=== PATIENT | female | born 1960 | race Caucasian/White ===

== ENCOUNTER 2021-08-12 01:42 | Observation (INO) | payer SELFPAY ==
[2021-08-12] MEDS ORDERED: Ondansetron 4 MG/2 ML SDV IVPUSH ONE ×2 (01:44→02:50)
[2021-08-12] MEDS ORDERED: Sodium Chloride 0.9% 10 ML Syringe FLUSH PRN ×3 (01:44→04:38)
[2021-08-12] MEDS ORDERED: Sodium Chloride 0.9% 1,000 ML IV SCH (01:45)
[2021-08-12] MEDS ORDERED: Heparin Sodium 5,000 Units/ML Vial IVPUSH ONE ×2 (01:52→02:48)
--- NOTE | 2021-08-12 01:52 | EDM.PDOC ---
ED HPI GENERAL MEDICAL PROBLEM - General Chief Complaint: Gastrointestinal Problem Stated Complaint: OPEN WOUNDS INFECTIONS Time Seen by Provider: 08/12/21 01:43 Source of Information: Reports: Patient, Family History Limitations: Reports: No Limitations - History of Present Illness INITIAL COMMENTS - FREE TEXT/NARRATIVE: Tiffanie is a 61-year-old female presenting to the ED via private vehicle for evaluation of vomiting, dehydration, and not feeling well for the last 5 or 6 days. The patient states that she just has not been doing well at home. She has not seen a doctor in many many years and upon taking her into room 9 and getting her disrobe she has a fungating right breast cancer that is evident as it is eroded through the skin. She has hypoxic with an SPO2 of 78% on room air, tachypneic, pale and cachectic. She is very cold to the touch. Upon connecting her to the dba developer she appears to have ST elevation so a twelve-lead EKG was obtained showing ST elevation in leads II, III, aVF, and V3, V4, V5 and V6. She also has concomitant IA interval depression. Initially a STEMI was called and I discussed the case with Dr. Kumar, strike warfare/missile systems officer at [facility] who thinks that this is more likely not a STEMI but rather pericarditis based on the IA depression. The patient does not have any chest pain but she is visibly dyspneic. She was placed on 2 L nasal cannula with an SPO2 rising to 96%. She request to be DNR and DNI upon asking of her CODE STATUS. When asked why she never addressed the breast cancer her response was that she did not want to. - Related Data Allergies Allergy/AdvReac Type Severity Reaction Status Date / Time No Known Allergies Allergy Verified 08/12/21 01:49 Home Meds: Home Meds NK [No Known Home Meds] 08/12/21 [History] ED ROS GENERAL - Review of Systems Review Of Systems: See Below Constitutional: Reports: Malaise, Weakness, Diaphoresis HEENT: Reports: No Symptoms Respiratory: Reports: Shortness of Breath Cardiovascular: Reports: Blood Pressure Problem (Low blood pressure) Endocrine: Reports: No Symptoms GI/Abdominal: Reports: Abdominal Pain, Decreased Appetite, Nausea, Vomiting : Reports: No Symptoms Musculoskeletal: Reports: No Symptoms Skin: Reports: No Symptoms Neurological: Reports: No Symptoms Psychiatric: Reports: No Symptoms Hematologic/Lymphatic: Reports: No Symptoms Immunologic: Reports: No Symptoms ED EXAM, GENERAL - Physical Exam Exam: See Below Exam Limited By: No Limitations General Appearance: Alert, Anxious, Moderate Distress, Cachetic Eye Exam: Bilateral Eye: EOMI, PERRL Throat/Mouth: Other (Dry mucous membranes) Head: Atraumatic Neck: Normal Inspection Respiratory/Chest: No Accessory Muscle Use, Decreased Breath Sounds (Highly reduced breath sounds in the bases), Rhonchi (A basilar), Other (Tachypnea, a fungating breast mass eroding through the skin involving the right breast.) Cardiovascular: Normal Peripheral Pulses, Regular Rate, Rhythm, No Murmur, Tachycardia Peripheral Pulses: 2+: Radial (L), Radial (R) GI/Abdominal: Soft, Non-Tender, No Distention, Abnormal Bowel Sounds (Diminished bowel sounds) Back Exam: Normal Inspection Extremities: Normal Range of Motion, No Pedal Edema Neurological: Alert, Oriented, Normal Cognition, No Motor/Sensory Deficits Psychiatric: Anxious, Depressed Mood Skin Exam: No Rash, Pallor (Sallow appearing), Other (Poor skin turgor) ED ULTRASOUND - Cardiac Indication: possible pericardial effusion, hypotension Findings: normal wall motion Impression: cardiac activity, pericardial effusion, other (I performed a bedside echocardiogram to assess for heart function, pericarditis, and pericardial effusion. The patient has a hyperdynamic hypertrophic left ventricle without regional wall motion abnormalities. She has a normal aortic and mitral valve. She has a large pericardial effusion which is) Images archived: Yes #1 Interpretation EKG Date: 08/12/21 Time: 01:45 Rhythm: NSR Rate (Beats/Min): 103 [place]: Normal P-Wave: Present QRS: Normal ST-T: Elevated (ST elevation in leads II, III, aVF, and V2 through V6. I reviewed this EKG with Dr. Kumar at [facility] who feels it is more consistent with pericarditis than STEMI.) QT: Normal Comparison: NA - No Prior EKG Course - Vital Signs Last Recorded V/S: Last Vital Signs Temp 36.1 C 08/12/21 01:45 Pulse 104 H 08/12/21 01:45 Resp 20 08/12/21 01:45 BP 90/66 08/12/21 01:45 Pulse Ox 96 08/12/21 01:45 - Orders/Labs/Meds Orders: Active Orders 24 hr Category Date Time Status Chest 1V Frontal [CR] Stat Exams 08/12/21 01:44 Taken CULTURE BLOOD [BC] Urgent Lab 08/12/21 01:55 Received CULTURE BLOOD [BC] Urgent Lab 08/12/21 02:00 Received DD [D-DIMER QUANTITATIVE] [COAG] Stat Lab 08/12/21 02:00 Received LACTIC ACID [CHEM] Routine Lab 08/12/21 06:00 Ordered PROCALCITONIN [CHEM] Stat Lab 08/12/21 02:00 Received UA W/MICROSCOPIC [URIN] Stat Lab 08/12/21 01:44 Ordered HYDROmorphone [Dilaudid] Med 08/12/21 03:01 Active 0.5 mg IVPUSH Q1H PRN Heparin Sodium/D5W [Heparin 25,000 Units in D5W 500 ML] Med 08/12/21 02:00 Active 25,000 units in 500 ml IV TITRATE Heparin Sodium/D5W [Heparin 25,000 Units in D5W 500 ML] Med 08/12/21 03:00 Active 25,000 units in 500 ml IV TITRATE Sodium Chloride 0.9% [Normal Saline] 1,000 ml Med 08/12/21 01:45 Active IV ASDIRECTED Sodium Chloride 0.9% [Saline Flush] Med 08/12/21 01:44 Active 10 ml FLUSH ASDIRECTED PRN Sodium Chloride 0.9% [Saline Flush] Med 08/12/21 02:43 Active 10 ml FLUSH ASDIRECTED PRN Blood Culture x2 Reflex Set [OM.PC] Urgent Oth 08/12/21 01:44 Ordered Isolation [COMM] Stat Oth 08/12/21 01:45 Ordered Saline Lock Insert [OM.PC] Routine Oth 08/12/21 01:44 Ordered Saline Lock Insert [OM.PC] Stat Oth 08/12/21 02:43 Ordered Severe Sepsis Onset Time [OM.PC] Stat Oth 08/12/21 02:43 Ordered EKG 12 Lead [EK] Routine Ther 08/12/21 01:46 Ordered Medication Orders Hydromorphone HCl (Hydromorphone 0.5 Mg/0.5 Ml Syringe) 0.5 mg IVPUSH Q1H PRN PRN Reason: Pain (moderate 4-6) Last Admin: 08/12/21 03:09 Dose: 0.5 mg Documented by: SHEBA Sodium Chloride (Normal Saline) 1,000 mls @ 999 mls/hr IV ASDIRECTED SHEREEN Last Admin: 08/12/21 01:53 Dose: 999 mls/hr Documented by: RACHEL Heparin Sodium/Dextrose (Heparin 25,000 Units In D5w 500 Ml) 25,000 units in 5 00 mls @ 10.886 mls/hr IV TITRATE SHEREEN; Protocol Heparin Sodium/Dextrose (Heparin 25,000 Units In D5w 500 Ml) 25,000 units in 500 mls @ 10.886 mls/hr IV TITRATE SHEREEN; Protocol Sodium Chloride (Sodium Chloride 0.9% 10 Ml Syringe) 10 ml FLUSH ASDIRECTED PRN PRN Reason: Keep Vein Open Sodium Chloride (Sodium Chloride 0.9% 10 Ml Syringe) 10 ml FLUSH ASDIRECTED PRN PRN Reason: Keep Vein Open Labs: Laboratory Tests 08/12/21 08/12/21 08/12/21 Range/Units 01:55 01:55 01:55 WBC 11.7 H (4.5-11.0) K/uL RBC 5.69 H (3.30-5.50) M/uL Hgb 16.2 H (12.0-15.0) g/dL Hct 47.6 (36.0-48.0) % MCV 84 (80-98) fL MCH 29 (27-31) pg MCHC 34 (32-36) % Plt Count 145 L (150-400) K/uL Neut % (Auto) 80.7 H (36-66) % Lymph % (Auto) 10.8 L (24-44) % [place] % (Auto) 8.2 H (2-6) % Eos % (Auto) 0.1 L (2-4) % Baso % (Auto) 0.2 (0-1) % PT (9.2-10.6) sec INR APTT (21.4-31.8) sec Sodium 127 L (140-148) mmol/L Potassium 5.5 H (3.6-5.2) mmol/L Chloride 89 L (100-108) mmol/L Carbon Dioxide 20 L (21-32) mmol/L Anion Gap 23.5 H (5.0-14.0) mmol/L BUN 64 H (7-18) mg/dL Creatinine 3.1 H (0.6-1.0) mg/dL Est Cr Clr Drug Dosing 13.65 mL/min Estimated GFR (MDRD) 15 L (>60) Glucose 197 H (74-106) mg/dL Lactic Acid 5.8 H (0.4-2.0) mmol/L Calcium 7.9 L (8.5-10.1) mg/dL Total Bilirubin 0.4 (0.2-1.0) mg/dL AST 61 H (15-37) U/L ALT 79 H (12-78) U/L Alkaline Phosphatase 148 H (46-116) U/L Lactate Dehydrogenase 489 H (82-234) U/L Troponin I High Sens (<=60.3) pg/mL C-Reactive Protein 5.32 H (0.0-0.3) mg/dL Total Protein 7.1 (6.4-8.2) g/dL Albumin 2.8 L (3.4-5.0) g/dL Globulin 4.3 H (2.3-3.5) g/dL Albumin/Globulin Ratio 0.7 L (1.2-2.2) Influenza Type A RNA (NEGATIVE) RSV RNA (INAAT) (NEGATIVE) Influenza Type B RNA (NEGATIVE) SARS-CoV-2 RNA (SEDA) (NEGATIVE) 08/12/21 08/12/21 08/12/21 Range/Units 01:55 02:00 02:10 WBC (4.5-11.0) K/uL RBC (3.30-5.50) M/uL Hgb (12.0-15.0) g/dL Hct (36.0-48.0) % MCV (80-98) fL MCH (27-31) pg MCHC (32-36) % Plt Count (150-400) K/uL Neut % (Auto) (36-66) % Lymph % (Auto) (24-44) % [place] % (Auto) (2-6) % Eos % (Auto) (2-4) % Baso % (Auto) (0-1) % PT 10.2 (9.2-10.6) sec INR 1.0 APTT 28.3 (21.4-31.8) sec Sodium (140-148) mmol/L Potassium (3.6-5.2) mmol/L Chloride (100-108) mmol/L Carbon Dioxide (21-32) mmol/L Anion Gap (5.0-14.0) mmol/L BUN (7-18) mg/dL Creatinine (0.6-1.0) mg/dL Est Cr Clr Drug Dosing mL/min Estimated GFR (MDRD) (>60) Glucose (74-106) mg/dL Lactic Acid (0.4-2.0) mmol/L Calcium (8.5-10.1) mg/dL Total Bilirubin (0.2-1.0) mg/dL AST (15-37) U/L ALT (12-78) U/L Alkaline Phosphatase (46-116) U/L Lactate Dehydrogenase (82-234) U/L Troponin I High Sens 1243.8 H* (<=60.3) pg/mL C-Reactive Protein (0.0-0.3) mg/dL Total Protein (6.4-8.2) g/dL Albumin (3.4-5.0) g/dL Globulin (2.3-3.5) g/dL Albumin/Globulin Ratio (1.2-2.2) Influenza Type A RNA Negative (NEGATIVE) RSV RNA (INAAT) Negative (NEGATIVE) Influenza Type B RNA Negative (NEGATIVE) SARS-CoV-2 RNA (SEDA) Positive H (NEGATIVE) Meds: Medications Generic Name Dose Route Start Last Admin Trade Name Freq PRN Reason Stop Dose Admin Hydromorphone HCl 0.5 mg 08/12/21 03:01 08/12/21 03:09 Hydromorphone 0.5 Mg/0.5 Ml Syringe IVPUSH 0.5 mg Q1H PRN Administration Pain (moderate 4-6) Sodium Chloride 1,000 mls @ 999 mls/hr 08/12/21 01:45 08/12/21 01:53 Normal Saline IV 999 mls/hr ASDIRECTED SHEREEN Administration Heparin Sodium/Dextrose 25,000 units in 500 mls @ 10.886 mls/hr 08/12/21 02:00 Heparin 25,000 Units In D5w 500 Ml IV TITRATE SHEREEN Protocol 12 UNITS/KG/HR Heparin Sodium/Dextrose 25,000 units in 500 mls @ 10.886 mls/hr 08/12/21 03:00 Heparin 25,000 Units In D5w 500 Ml IV TITRATE SHEREEN Protocol 12 UNITS/KG/HR Sodium Chloride 10 ml 08/12/21 01:44 Sodium Chloride 0.9% 10 Ml Syringe FLUSH ASDIRECTED PRN Keep Vein Open Sodium Chloride 10 ml 08/12/21 02:43 Sodium Chloride 0.9% 10 Ml Syringe FLUSH ASDIRECTED PRN Keep Vein Open Discontinued Medications Generic Name Dose Route Start Last Admin Trade Name Freq PRN Reason Stop Dose Admin Aspirin 324 mg 08/12/21 01:56 08/12/21 02:03 Aspirin 81 Mg Tab.Chew PO 08/12/21 01:57 324 mg ONETIME ONE Administration Heparin Sodium (Porcine) 2,700 units 08/12/21 01:52 08/12/21 02:13 Heparin Sodium 5,000 Units/Ml Vial IVPUSH 08/12/21 01:53 Not Given .BOLUS ONE Heparin Sodium (Porcine) 2,700 units 08/12/21 02:48 Heparin Sodium 5,000 Units/Ml Vial IVPUSH 08/12/21 02:49 .BOLUS ONE Ondansetron HCl 4 mg 08/12/21 01:44 08/12/21 01:53 Ondansetron 4 Mg/2 Ml Sdv IVPUSH 08/12/21 01:45 4 mg ONETIME ONE Administration Ondansetron HCl 4 mg 08/12/21 02:50 Ondansetron 4 Mg/2 Ml Sdv IVPUSH 08/12/21 02:51 ONETIME ONE - Re-Assessments/Exams Free Text/Narrative Re-Assessment/Exam: 08/12/21 01:45 an EKG was done showing ST elevation in leads II, III, aVF, and V3 through V6 consistent with possible STEMI. I discussed the case with Dr. José valdez strike warfare/missile systems officer on-call for STEMI's at [facility] who thinks that this is more likely pericarditis given the concomitant IA depressions. He also recommended looking at the D-dimer to make sure that she is not having a PE. He does not believe that this is a STEMI at this time so does not think that she needs to go to the Credit Control Officer. I reviewed the patient's labs showing a leukocyte count of 11.7, hemoglobin of 16.2 and a platelet count of 145,000. Her comprehensive metabolic panel shows a sodium of 127, potassium 5.5, chloride of 89, bicarbonate of 20, BUN of 64 with a creatinine of 3.1 and a glucose of 197. Her calcium is 7.9 with an albumin of 2.8, her AST is 61 with an ALT of 79 and alkaline phosphatase of 149. Her venous lactate is 5.8. Her highly sensitive troponin is 1243.8 and her C- reactive protein is 5.32. LDH is elevated at 489. 08/12/21 03:10 I had a discussion with the patient and her family concerning her situation currently. The patient has evidence for cardiac damage with a troponin at 1243.7, kidney damage with a creatinine of 3.1, liver damage with elevation of her AST, ALT and alkaline phos, a venous lactic acid of 5.8 and she has soft blood pressures with a systolic pressure of 87/60. She is tachycardic with a heart rate of [address] elevation in leads II, III, aVF, and V3 through V6 with concomitant IA depression consistent with pericarditis. I did do a bedside echocardiogram showing a large pericardial effusion and hyperdynam ic small hypertrophic LV without regional wall motion abnormalities. In addition to all this, the patient is also Covid positive. We discussed management including how aggressive and the patient elects for comfort measures at this time. We initiated treatment with Dilaudid 0.5 mg every hour as needed for pain control. 08/12/21 03:35 I will discussed the case with Dr. Jenkins arrange for admission of the patient for comfort care measures. Departure - Departure Time of Disposition: 03:38 Disposition: Admitted As Inpatient 66 Clinical Impression: Metastatic breast cancer, COVID-19, Pneumonia due to COVID-19 virus, Elevated liver enzymes, Pericardial effusion, Hyperkalemia, Hyponatremia, Hyperglycemia, Elevated troponin, Hypoxia Acute kidney failure Qualifiers: Acute renal failure type: unspecified Qualified Code(s): N17.9 - Acute kidney failure, unspecified Pericarditis Qualifiers: Pericarditis type: associated with other disease Chronicity: unspecified Qualified Code(s): I31.9 - Disease of pericardium, unspecified Myocarditis Qualifiers: Myocarditis type: unspecified Chronicity: unspecified Qualified Code(s): I51.4 - Myocarditis, unspecified Nausea and vomiting Qualifiers: Vomiting type: unspecified Qualified Code(s): R11.2 - Nausea with vomiting, unspecified Hypotension Qualifiers: Hypotension type: unspecified hypotension type Qualified Code(s): I95.9 - Hypotension, unspecified - Discharge Information Referrals: PCP,None [Primary Care Provider] - Forms: ED Department Discharge Sepsis Event Note (ED) - Focused Exam Vital Signs: Vital Signs Temp Pulse Resp BP Pulse Ox 08/12/21 01:45 36.1 C 104 H 20 90/66 96 - Problem List & Annotations (1) Acute kidney failure SNOMED Code(s): 77086793 Code(s): N17.9 - ACUTE KIDNEY FAILURE, UNSPECIFIED Status: Acute Current Visit: Yes Qualifiers: Acute renal failure type: unspecified Qualified Code(s): N17.9 - Acute kidney failure, unspecified (2) COVID-19 SNOMED Code(s): 675574537 Code(s): U07.1 - COVID-19 Status: Acute Current Visit: Yes (3) Elevated liver enzymes SNOMED Code(s): 641245535 Code(s): R74.8 - ABNORMAL LEVELS OF OTHER SERUM ENZYMES Status: Acute Current Visit: Yes (4) Elevated troponin SNOMED Code(s): 783022836, 983870509, 268075743 Code(s): R77.8 - OTHER SPECIFIED ABNORMALITIES OF PLASMA PROTEINS Status: Acute Current Visit: Yes (5) Hyperglycemia SNOMED Code(s): 53390230 Code(s): R73.9 - HYPERGLYCEMIA, UNSPECIFIED Status: Acute Current Visit: Yes (6) Hyperkalemia SNOMED Code(s): 07128901 Code(s): E87.5 - HYPERKALEMIA Status: Acute Current Visit: Yes (7) Hyponatremia SNOMED Code(s): 32028968 Code(s): E87.1 - HYPO-OSMOLALITY AND HYPONATREMIA Status: Acute Current Visit: Yes (8) Hypotension SNOMED Code(s): 01558569 Code(s): I95.9 - HYPOTENSION, UNSPECIFIED Status: Acute Current Visit: Yes Qualifiers: Hypotension type: unspecified hypotension type Qualified Code(s): I95.9 - Hypotension, unspecified (9) Hypoxia SNOMED Code(s): 169361123 Code(s): R09.02 - HYPOXEMIA Status: Acute Current Visit: Yes (10) Metastatic breast cancer SNOMED Code(s): 186531477, 091234848 Code(s): C50.919 - MALIGNANT NEOPLASM OF UNSP SITE OF UNSPECIFIED FEMALE BREAST Status: Acute Current Visit: Yes (11) Myocarditis SNOMED Code(s): 30605807 Code(s): I51.4 - MYOCARDITIS, UNSPECIFIED Status: Acute Current Visit: Yes Qualifiers: Myocarditis type: unspecified Chronicity: unspecified Qualified Code(s): I51.4 - Myocarditis, unspecified (12) Nausea and vomiting SNOMED Code(s): 97247775 Code(s): R11.2 - NAUSEA WITH VOMITING, UNSPECIFIED Status: Acute Current Visit: Yes Qualifiers: Vomiting type: unspecified Qualified Code(s): R11.2 - Nausea with vomiting, unspecified (13) Pericardial effusion SNOMED Code(s): 906791330 Code(s): I31.3 - PERICARDIAL EFFUSION (NONINFLAMMATORY) Status: Acute Current Visit: Yes (14) Pericarditis SNOMED Code(s): 7119758 Code(s): I31.9 - DISEASE OF PERICARDIUM, UNSPECIFIED Status: Acute Current Visit: Yes Qualifiers: Pericarditis type: associated with other disease Chronicity: unspecified Qualified Code(s): I31.9 - Disease of pericardium, unspecified (15) Pneumonia due to COVID-19 virus SNOMED Code(s): 697930164961332687 Code(s): U07.1 - COVID-19; J12.82 - PNEUMONIA DUE TO CORONAVIRUS DISEASE 2019 Status: Acute Current Visit: Yes - My Orders Last 24 Hours: My Active Orders 08/12/21 01:44 Chest 1V Frontal [CR] Stat UA W/MICROSCOPIC [URIN] Stat Sodium Chloride 0.9% [Saline Flush] 10 ml FLUSH ASDIRECTED PRN Blood Culture x2 Reflex Set [OM.PC] Urgent Saline Lock Insert [OM.PC] Routine 08/12/21 01:45 Sodium Chloride 0.9% [Normal Saline] 1,000 ml IV ASDIRECTED Isolation [COMM] Stat 08/12/21 01:46 EKG 12 Lead [EK] Routine 08/12/21 01:55 CULTURE BLOOD [BC] Urgent 08/12/21 02:00 CULTURE BLOOD [BC] Urgent DD [D-DIMER QUANTITATIVE] [COAG] Stat PROCALCITONIN [CHEM] Stat Heparin Sodium/D5W [Heparin 25,000 Units in D5W 500 ML] 25,000 units in 500 ml IV TITRATE 08/12/21 02:43 Sodium Chloride 0.9% [Saline Flush] 10 ml FLUSH ASDIRECTED PRN Saline Lock Insert [OM.PC] Stat Severe Sepsis Onset Time [OM.PC] Stat 08/12/21 03:00 Heparin Sodium/D5W [Heparin 25,000 Units in D5W 500 ML] 25,000 units in 500 ml IV TITRATE 08/12/21 03:01 HYDROmorphone [Dilaudid] 0.5 mg IVPUSH Q1H PRN 08/12/21 06:00 LACTIC ACID [CHEM] Routine - Assessment/Plan Last 24 Hours: My Active Orders 08/12/21 01:44 Chest 1V Frontal [CR] Stat UA W/MICROSCOPIC [URIN] Stat Sodium Chloride 0.9% [Saline Flush] 10 ml FLUSH ASDIRECTED PRN Blood Culture x2 Reflex Set [OM.PC] Urgent Saline Lock Insert [OM.PC] Routine 08/12/21 01:45 Sodium Chloride 0.9% [Normal Saline] 1,000 ml IV ASDIRECTED Isolation [COMM] Stat 08/12/21 01:46 EKG 12 Lead [EK] Routine 08/12/21 01:55 CULTURE BLOOD [BC] Urgent 08/12/21 02:00 CULTURE BLOOD [BC] Urgent DD [D-DIMER QUANTITATIVE] [COAG] Stat PROCALCITONIN [CHEM] Stat Heparin Sodium/D5W [Heparin 25,000 Units in D5W 500 ML] 25,000 units in 500 ml IV TITRATE 08/12/21 02:43 Sodium Chloride 0.9% [Saline Flush] 10 ml FLUSH ASDIRECTED PRN Saline Lock Insert [OM.PC] Stat Severe Sepsis Onset Time [OM.PC] Stat 08/12/21 03:00 Heparin Sodium/D5W [Heparin 25,000 Units in D5W 500 ML] 25,000 units in 500 ml IV TITRATE 08/12/21 03:01 HYDROmorphone [Dilaudid] 0.5 mg IVPUSH Q1H PRN 08/12/21 06:00 LACTIC ACID [CHEM] Routine
[2021-08-12] MEDS ORDERED: Aspirin 81 MG Tab.Chew PO ONE (01:56)
[2021-08-12] MEDS ORDERED: Heparin Sodium/D5W 25,000 UNITS/500 ML BAG IV SCH ×2 (02:00→03:00)
[2021-08-12] MEDS ORDERED: HYDROmorphone 0.5 MG/0.5 ML Syringe IVPUSH PRN ×2 (03:01→04:44)
[2021-08-12 03:11] LABS: CORONAVIRUS COVID-19 NAA POSITIVE (NEGATIVE)
[2021-08-12] MEDS ORDERED: Ondansetron 4 MG/2 ML SDV IV PRN (04:38)
--- NOTE | 2021-08-12 06:47 | HP ---
CHIEF COMPLAINT: Cough. HISTORY OF PRESENT ILLNESS: A 61-year-old who has not had really any medical care. For the last 5 days, she has had productive cough with some shortness of breath. She just was not getting any better and came into the emergency room for further evaluation. Initially, it was felt to be secondary to myocardial infarction. Was positive for COVID. Had right-sided chest breast mass that she states she has had for 2 years and slowly had been getting bigger. Suspected breast carcinoma with abnormal liver and renal labs. Likely due to metastatic breast cancer and acute COVID pneumonia, I was asked to admit the patient for comfort care, to work on getting her set up for hospice; she would like to ultimately return home. The patient does report some nausea and some discomfort, but is improved since IV Zofran and Dilaudid have been given. PAST MEDICAL HISTORY: Really no medical problems in the past because she has not sought medical care, but anticipate she probably has had a right breast cancer for 2 years. MEDICATIONS: None. ALLERGIES: NO KNOWN DRUG ALLERGIES. SOCIAL HISTORY: Smokes at least a pack of cigarettes for years. FAMILY HISTORY: Noncontributory. REVIEW OF SYSTEMS: Denies any HEENT complaints. She has had productive cough with some shortness of breath, some nausea, but has been trying to force herself to eat. No bowel or bladder trouble. No swelling in her legs. She denies any abdominal pain. She does have some discomfort on the right side of her chest. PHYSICAL EXAMINATION: VITAL SIGNS: Weight 45 kg, temp 36.1, pulse is 104, blood pressure 90/66, respirations 20, O2 saturation 96% on 2 L. HEENT: Pharynx: Slightly dry mucous membranes. NECK: Supple. No adenopathy, thyromegaly, JVD or carotid bruits. LUNGS: Slight rhonchi. HEART: Regular, tachycardic. Did not hear any murmurs. ABDOMEN: She had some mild right upper quadrant pain with deep palpation. I do not feel any definite masses. BREASTS: She does have a necrotic large mass of her right breast. CHEST: Some slight discomfort with palpation. EXTREMITIES: No edema. SKIN: Otherwise unremarkable other than her right chest mass which does look necrotic as stated above. NEUROLOGIC: The patient seemed to be alert and oriented. LABORATORY DATA: White count 11,700, hemoglobin 16.2, platelets 145,000. D-dimer was elevated at 1616. Sodium 127, potassium 5.5, chloride 89. BUN was 64, creatinine 3.1, GFR 15, glucose 197. Lactic acid was elevated at 5.8, calcium is low at 7.9, bilirubin normal at 0.4, AST 61, ALT 79, alkaline phosphatase 148. Lactate dehydrogenase was elevated at 489. Troponin was 1243. C-reactive protein was elevated at 5.32. Albumin was low at 2.8. Influenza and RSV were negative. Was positive for COVID-19. Chest x-ray consistent with COVID pneumonitis. ASSESSMENT: 1. COVID pneumonia. 2. Suspected breast carcinoma. Emergency room physician has talked to her and she does not want have any heroic measures. Looking at comfort care. We will admit her and work on getting her set up to have hospice at home. Continue with oxygen as needed, Dilaudid for pain, Zofran for nausea. Heron Jenkins MD /[id number]
[2021-08-12] MEDS ORDERED: HYDROmorphone 2 MG Tab PO ONE (13:15)
--- NOTE | 2021-08-12 15:26 | PCM.DCSUM1 ---
Discharge Summary - Hospital Course Brief History: 61-year-old female with history of tobacco dependence and no recent medical care who presented with 5 days of worsening cough and shortness of breath. Work-up in the emergency room revealed concern for ST segment ACS, acute kidney injury, COVID-19 infection and a large right-sided breast cancer. She was admitted for symptom management and hospice consultation. Diagnosis: Stroke: No - Discharge Data Discharge Date: 08/12/21 Discharge Disposition: DC/Tfer to Hospice - Home 50 Condition: Stable - Referral to Home Health Primary Care Physician: PCP None - Discharge Diagnosis/Problem(s) (1) Metastatic breast cancer SNOMED Code(s): 221695444, 194437159 ICD Code: C50.919 - MALIGNANT NEOPLASM OF UNSP SITE OF UNSPECIFIED FEMALE BREAST Status: Acute (2) Pneumonia due to COVID-19 virus SNOMED Code(s): 650879739273230669 ICD Code: U07.1 - COVID-19; J12.82 - PNEUMONIA DUE TO CORONAVIRUS DISEASE 2018 Status: Acute (3) Acute kidney failure SNOMED Code(s): 59048130 ICD Code: N17.9 - ACUTE KIDNEY FAILURE, UNSPECIFIED Status: Acute Qualifiers: Acute renal failure type: unspecified Qualified Code(s): N17.9 - Acute kidney failure, unspecified (4) Myocarditis SNOMED Code(s): 50790423 ICD Code: I51.4 - MYOCARDITIS, UNSPECIFIED Status: Acute Qualifiers: Myocarditis type: unspecified Chronicity: unspecified Qualified Code(s): I51.4 - Myocarditis, unspecified (5) Hyperkalemia SNOMED Code(s): 24143893 ICD Code: E87.5 - HYPERKALEMIA Status: Acute (6) Hyponatremia SNOMED Code(s): 11751803 ICD Code: E87.1 - HYPO-OSMOLALITY AND HYPONATREMIA Status: Acute - Patient Summary/Data Hospital Course: Tiffanie presented to the emergency room with 5 days of progressive cough and shortness of breath. Work-up in the emergency room revealed a variety of very concerning findings including possible ST elevation ACS with significant troponin elevation, acute kidney injury, COVID-19 positive testing, hypoxia as well as a large right-sided breast cancer. Initially the plan was for transfer to manage the ST elevation ACS but the patient did not want any heroic interventions. She is aware that she has a variety of acute findings including the coronary concerns along with the acute kidney injury and abnormal hepatic testing. She also has hyperkalemia and hyponatremia. She reports that the right-sided rest mass has been there for about 2 years and has been steadily getting worse. She figured it was breast cancer but has not sought evaluation for it. She reports that she would like to go home to . She has no interest in aggressive interventions knowing in her mind that her breast cancer is terminal. She reports that she has family and friends who are supportive and will be able to help her out. She is interested in aggressive management of pain and nausea. Lauren from hospice did come visit with her today. The plan is for her to go home with pain medication to get her through until hospice admission on Saturday, 2 days from now. She does not think she needs any equipment at this point. Depending on how the acute coronary syndrome plays out along with her Covid infection she may have only a very limited number of days though if she does survive the next few days she probably only has a couple of months left with her advancing breast cancer. Hospice admission diagnoses -right-sided breast cancer,, ST elevation myocardial infarction, acute kidney injury, COVID19 infection, tobacco dependence - Patient Instructions Diet: Regular Diet as Tolerated Activity: As Tolerated Other/Special Instructions: discharge to home with hospice - dx - breast cancer with probable metastatic disease, covid 19 pneumonia with myocarditis, tobacco dependence, acute kidney injury, hyperkalemia - Discharge Plan *PRESCRIPTION DRUG MONITORING PROGRAM REVIEWED*: Not Applicable *COPY OF PRESCRIPTION DRUG MONITORING REPORT IN PATIENT GAUTAM: Not Applicable Prescriptions/Med Rec: HYDROmorphone [Dilaudid] 2 mg PO Q3H PRN #20 tab PRN Reason: Pain ondansetron HCL [Ondansetron HCl] 4 mg PO Q6H PRN #20 tablet PRN Reason: Nausea Home Medications: Home Meds HYDROmorphone [Dilaudid] 2 mg PO Q3H PRN #20 tab 08/12/21 [Rx] ondansetron HCL [Ondansetron HCl] 4 mg PO Q6H PRN #20 tablet 08/12/21 [Rx] Oxygen Therapy Mode: Room Air Patient Handouts: COVID-19, Hospice Referrals: PCP,None [Primary Care Provider] - - Discharge Summary/Plan Comment DC Time >30 min.: Yes Total # of Minutes for Discharge Time: 45-hospice consultation - Patient Data Vitals - Most Recent: Last Vital Signs Temp 36.8 C 08/12/21 07:48 Pulse 103 H 08/12/21 07:48 Resp 22 H 08/12/21 07:48 BP 85/51 L 08/12/21 07:48 Pulse Ox 88 L 08/12/21 05:40 Weight - Most Recent: 48.444 kg I&O - Last 24 hours: Intake & Output 08/12/21 08/12/21 08/12/21 06:59 14:59 22:59 Intake Total 120 260 Balance 120 260 Lab Results - Last 24 hrs: Laboratory Results - last 24 hr 08/12/21 08/12/21 08/12/21 Range/Units 01:55 01:55 01:55 WBC 11.7 H (4.5-11.0) K/uL RBC 5.69 H (3.30-5.50) M/uL Hgb 16.2 H (12.0-15.0) g/dL Hct 47.6 (36.0-48.0) % MCV 84 (80-98) fL MCH 29 (27-31) pg MCHC 34 (32-36) % Plt Count 145 L (150-400) K/uL Neut % (Auto) 80.7 H (36-66) % Lymph % (Auto) 10.8 L (24-44) % Walker % (Auto) 8.2 H (2-6) % Eos % (Auto) 0.1 L (2-4) % Baso % (Auto) 0.2 (0-1) % PT (9.2-10.6) sec INR APTT (21.4-31.8) sec D-Dimer, Quantitative (0.0-500.0) ng/mL Sodium 127 L (140-148) mmol/L Potassium 5.5 H (3.6-5.2) mmol/L Chloride 89 L (100-108) mmol/L Carbon Dioxide 20 L (21-32) mmol/L Anion Gap 23.5 H (5.0-14.0) mmol/L BUN 64 H (7-18) mg/dL Creatinine 3.1 H (0.6-1.0) mg/dL Est Cr Clr Drug Dosing 13.65 mL/min Estimated GFR (MDRD) 15 L (>60) Glucose 197 H (74-106) mg/dL Lactic Acid 5.8 H (0.4-2.0) mmol/L Calcium 7.9 L (8.5-10.1) mg/dL Total Bilirubin 0.4 (0.2-1.0) mg/dL AST 61 H (15-37) U/L ALT 79 H (12-78) U/L Alkaline Phosphatase 148 H (46-116) U/L Lactate Dehydrogenase 489 H (82-234) U/L Troponin I High Sens (<=60.3) pg/mL C-Reactive Protein 5.32 H (0.0-0.3) mg/dL Total Protein 7.1 (6.4-8.2) g/dL Albumin 2.8 L (3.4-5.0) g/dL Globulin 4.3 H (2.3-3.5) g/dL Albumin/Globulin Ratio 0.7 L (1.2-2.2) Procalcitonin ng/mL Influenza Type A RNA (NEGATIVE) RSV RNA (INAAT) (NEGATIVE) Influenza Type B RNA (NEGATIVE) SARS-CoV-2 RNA (SEDA) (NEGATIVE) 08/12/21 08/12/21 08/12/21 Range/Units 01:55 02:00 02:00 WBC (4.5-11.0) K/uL RBC (3.30-5.50) M/uL Hgb (12.0-15.0) g/dL Hct (36.0-48.0) % MCV (80-98) fL MCH (27-31) pg MCHC (32-36) % Plt Count (150-400) K/uL Neut % (Auto) (36-66) % Lymph % (Auto) (24-44) % Walker % (Auto) (2-6) % Eos % (Auto) (2-4) % Baso % (Auto) (0-1) % PT 10.2 (9.2-10.6) sec INR 1.0 APTT 28.3 (21.4-31.8) sec D-Dimer, Quantitative (0.0-500.0) ng/mL Sodium (140-148) mmol/L Potassium (3.6-5.2) mmol/L Chloride (100-108) mmol/L Carbon Dioxide (21-32) mmol/L Anion Gap (5.0-14.0) mmol/L BUN (7-18) mg/dL Creatinine (0.6-1.0) mg/dL Est Cr Clr Drug Dosing mL/min Estimated GFR (MDRD) (>60) Glucose (74-106) mg/dL Lactic Acid (0.4-2.0) mmol/L Calcium (8.5-10.1) mg/dL Total Bilirubin (0.2-1.0) mg/dL AST (15-37) U/L ALT (12-78) U/L Alkaline Phosphatase (46-116) U/L Lactate Dehydrogenase (82-234) U/L Troponin I High Sens 1243.8 H* (<=60.3) pg/mL C-Reactive Protein (0.0-0.3) mg/dL Total Protein (6.4-8.2) g/dL Albumin (3.4-5.0) g/dL Globulin (2.3-3.5) g/dL Albumin/Globulin Ratio (1.2-2.2) Procalcitonin 1.16 ng/mL Influenza Type A RNA (NEGATIVE) RSV RNA (INAAT) (NEGATIVE) Influenza Type B RNA (NEGATIVE) SARS-CoV-2 RNA (SEDA) (NEGATIVE) 08/12/21 08/12/21 08/12/21 Range/Units 02:00 02:10 06:00 WBC (4.5-11.0) K/uL RBC (3.30-5.50) M/uL Hgb (12.0-15.0) g/dL Hct (36.0-48.0) % MCV (80-98) fL MCH (27-31) pg MCHC (32-36) % Plt Count (150-400) K/uL Neut % (Auto) (36-66) % Lymph % (Auto) (24-44) % Walker % (Auto) (2-6) % Eos % (Auto) (2-4) % Baso % (Auto) (0-1) % PT (9.2-10.6) sec INR APTT (21.4-31.8) sec D-Dimer, Quantitative 1616.67 H (0.0-500.0) ng/mL Sodium (140-148) mmol/L Potassium (3.6-5.2) mmol/L Chloride (100-108) mmol/L Carbon Dioxide (21-32) mmol/L Anion Gap (5.0-14.0) mmol/L BUN (7-18) mg/dL Creatinine (0.6-1.0) mg/dL Est Cr Clr Drug Dosing mL/min Estimated GFR (MDRD) (>60) Glucose (74-106) mg/dL Lactic Acid 5.6 H (0.4-2.0) mmol/L Calcium (8.5-10.1) mg/dL Total Bilirubin (0.2-1.0) mg/dL AST (15-37) U/L ALT (12-78) U/L Alkaline Phosphatase (46-116) U/L Lactate Dehydrogenase (82-234) U/L Troponin I High Sens (<=60.3) pg/mL C-Reactive Protein (0.0-0.3) mg/dL Total Protein (6.4-8.2) g/dL Albumin (3.4-5.0) g/dL Globulin (2.3-3.5) g/dL Albumin/Globulin Ratio (1.2-2.2) Procalcitonin ng/mL Influenza Type A RNA Negative (NEGATIVE) RSV RNA (INAAT) Negative (NEGATIVE) Influenza Type B RNA Negative (NEGATIVE) SARS-CoV-2 RNA (SEDA) Positive H (NEGATIVE) Med Orders - Current: Current Medications Discontinued Medications Aspirin (Aspirin 81 Mg Tab.Chew) 324 mg PO ONETIME ONE Stop: 08/12/21 01:57 Last Admin: 08/12/21 02:03 Dose: 324 mg Documented by: Heparin Sodium (Porcine) (Heparin Sodium 5,000 Units/Ml Vial) 2,700 units IVPUSH .BOLUS ONE Stop: 08/12/21 01:53 Last Admin: 08/12/21 02:13 Dose: Not Given Documented by: Heparin Sodium (Porcine) (Heparin Sodium 5,000 Units/Ml Vial) 2,700 units IVPUSH .BOLUS ONE Stop: 08/12/21 02:49 Last Admin: 08/12/21 09:51 Dose: Not Given Documented by: Hydromorphone HCl (Hydromorphone 0.5 Mg/0.5 Ml Syringe) 0.5 mg IVPUSH Q1H PRN PRN Reason: Pain (moderate 4-6) Last Admin: 08/12/21 03:09 Dose: 0.5 mg Documented by: Hydromorphone HCl (Hydromorphone 0.5 Mg/0.5 Ml Syringe) 0.5 mg IVPUSH Q1H PRN PRN Reason: Pain Last Admin: 08/12/21 08:00 Dose: 0.5 mg Documented by: Hydromorphone HCl (Hydromorphone 2 Mg Tab) 2 mg PO ONETIME ONE Stop: 08/12/21 13:16 Last Admin: 08/12/21 13:35 Dose: 2 mg Documented by: Sodium Chloride (Normal Saline) 1,000 mls @ 999 mls/hr IV ASDIRECTED SHEREEN Last Admin: 08/12/21 01:53 Dose: 999 mls/hr Documented by: Heparin Sodium/Dextrose (Heparin 25,000 Units In D5w 500 Ml) 25,000 units in 500 mls @ 10.886 mls/hr IV TITRATE SHEREEN; Protocol Heparin Sodium/Dextrose (Heparin 25,000 Units In D5w 500 Ml) 25,000 units in 500 mls @ 10.886 mls/hr IV TITRATE SHEREEN; Protocol Ondansetron HCl (Ondansetron 4 Mg/2 Ml Sdv) 4 mg IVPUSH ONETIME ONE Stop: 08/12/21 01:45 Last Admin: 08/12/21 01:53 Dose: 4 mg Documented by: Ondansetron HCl (Ondansetron 4 Mg/2 Ml Sdv) 4 mg IVPUSH ONETIME ONE Stop: 08/12/21 02:51 Last Admin: 08/12/21 09:51 Dose: Not Given Documented by: Ondansetron HCl (Ondansetron 4 Mg/2 Ml Sdv) 4 mg IV Q4H PRN PRN Reason: Nausea/Vomiting Sodium Chloride (Sodium Chloride 0.9% 10 Ml Syringe) 10 ml FLUSH ASDIRECTED PRN PRN Reason: Keep Vein Open
--- NOTE | 2021-08-14 09:45 | CR ---
CHEST: Portable 08/12/2021 at 3:07 AM CLINICAL HISTORY:Hypoxia COMPARISON:None FINDINGS: There is diffuse infiltrate in both lower lobes and right upper lobe.. There is a 3.2 x 2.7 cm nodular density in the lingula. No effusions are seen Impression: Bilateral pneumonic infiltrates 2.7 x 3.2 cm nodular focus near the cardiac apex. This could represents rounded pneumonia or atelectasis. Underlying mass is not excluded. Short-term follow-up recommended until clear
== END 2021-08-12 13:30 | disposition hospice, home (50) ==
LOC: JP.ED 01:42 → JP.2SS 04:38
PROVIDERS: ADMIT Family Medicine; ATTEND Family Medicine
DX: U07.1 COVID-19 (principal); J12.82 Pneumonia due to coronavirus disease 2019; C50.911 Malignant neoplasm of unspecified site of right female breast; F17.210 Nicotine dependence, cigarettes, uncomplicated; N17.9 Acute kidney failure, unspecified; I51.4 Myocarditis, unspecified; E87.5 Hyperkalemia; E87.1 Hypo-osmolality and hyponatremia
CPT/HCPCS: 0241U; 36415; 71045; 80053; 83605; 83615; 84145; 84484; 85025; 85379; 85610; 85730; 86140; 87040; 93005; 96374; 96375; 96376; 99285; A9270; G0378; J1170; J2405; J7030